=== PATIENT | female | born 1980 | race Caucasian/White ===

== ENCOUNTER 2019-01-14 23:00 | Inpatient (IN) | payer MEDICAID, OTHER, SELFPAY ==
[2019-01-15] MEDS ORDERED: Ondansetron PF 4 MG/2 ML Vial IVP PRN (16:57)
[2019-01-15] MEDS ORDERED: Promethazine HCl 25 MG/ML VIAL IM PRN (16:57)
[2019-01-15] MEDS ORDERED: Acetaminophen 500 MG TAB PO PRN (16:57)
[2019-01-15] MEDS ORDERED: Docusate 100 MG CAP PO PRN (16:57)
[2019-01-15 16:59] VITALS: BP 119/65; TEMP 98.2; BMI 25.7
[2019-01-15 17:34] LABS: Hemoglobin 11.7 g/dL (12.0-16.0); Mean Corpuscular HGB CONC 33.6 g/dL (32.0-36.0); Mean Corpuscular Hemoglobin 27.5 pg (27.0-31.0); Mean Corpuscular Volume 81.6 fL (78.0-98.0); Mean Platelet Volume 8.1 fL (7.4-10.4); Platelet Count 232 thou/uL (130-400); Red Blood Cell (RBC) Count 4.26 mill/uL (4.20-5.40); White Blood Cell (WBC) Count 8.3 thou/uL (4.8-10.8)
[2019-01-15 18:12] LABS: HBSAg Index 0.25 S/CO (0-0.99); Hep B Surf Ag Non-Reactive S/CO (NonReactive); Syphilis Antibody Nonreactive (Nonreactive); Syphilis Antibody Index 0.03 S/CO (<1.00 Non-Reactive)
[2019-01-15] MEDS ORDERED: Lactated Ringer's 1,000 ML IV SCH (18:15)
--- NOTE | 2019-01-15 18:16 | PDOC.LDHP ---
Labor and Delivery H&P Chief complaint: scheduled induction HPI: 38 yo @39 0/7 weeks presenting for elective induction. Feeling occasional ctx. Denies any LOF, VB. (+)FM. Denies any QUINTEROS, visual changes. Current gestational age (weeks): 39 Due date: 01/22/19 Dating criteria: second trimester ultrasound (16.3 week USG) Grav: 4 Para: 3 OB History Details: TSVD x 3 Current complications: other (AMA) Abnormal US findings: No Past Medical History: Denies DM, HTN, asthma, cardiac, lung or kidney disease Current medications: pre-toya vitamins Previous surgical history: none Allergies/Adverse Reactions: Allergies Allergy/AdvReac Type Severity Reaction Status Date / Time No Known Allergies Allergy Unverified 01/13/14 15:42 Social history: none - Physical Exam Vital signs reviewed and normal: yes General: NAD Heart: RRR Lungs: CTAB Abdomen: gravid Extremeties: no edema FHT: category 1 [place] contractions every: rare - Vaginal Exam cm dilated: 1 Effacement: 50% Station: -3 - OB Labs Blood type: A RH: positive Antibody Screen: negative HIV: negative RPR: negative HEPSAg: negative 1 hour GCT: negative GBS: negative Urine drug screen: not done Rubella: immune Additional Labs: [id number] -negative msAFP- negative for OSB - Assessment L&D Assessment: elective induction at term - Plan Plan: admit to L&D -: Unable to palpate presenting part on SVE. Leopolds not c/w vertex presentation. USG brought to room to confirm presentation and fetus found to be in transverse lie back up. Normal appearing amount of amniotic fluid. Findings discussed with educational sign language interpreter from [employer]. Discussed options for care including external cephalic version, or expectant management. Risks for external version discussed including placental abruption and distress necessitating emergent . Risks of including bleeding, infection, injury to adjacent organs. Patient wishes to proceed with expectant management. Patient rescheduled for possible induction versus on January 19.
== END 2019-01-15 19:04 | disposition home health service (06) | DRG 998 ==
LOC: L&D 01-15 15:36
PROVIDERS: ADMIT Family Medicine; ATTEND Family Medicine
DX: O09.523 Supervision of elderly multigravida, third trimester (principal); Z3A.39 39 weeks gestation of pregnancy
CPT/HCPCS: 36415; 76815; 85027; 86780; 86850; 86900; 86901; 87340

== ENCOUNTER 2019-01-17 00:20 | Inpatient (IN) | payer OTHER, SELFPAY ==
[2019-01-17] MEDS: Lactated Ringer's 1,000 ML IV SCH ×2 (00:50→01:19)
[2019-01-17] MEDS ORDERED: Fentanyl 4 mcg/Bup 0.1% Cadd 100 ML ONE (00:57)
--- NOTE | 2019-01-17 01:01 | PDOC.FPRHP ---
- History of Present Illness Chief Complaint: Contractions - Allergies/Adverse Reactions Allergies Allergy/AdvReac Type Severity Reaction Status Date / Time No Known Allergies Allergy Unverified 01/13/14 15:42 - Home Medications Medication Instructions Recorded Confirmed Type Vit,Calc76/Iron/Folic 1 tablet PO DAILY 01/13/14 01/15/19 History [Prenatabs Rx Tablet] - History PMHx: PSHx: FHx: Social: - Vital signs BP: [] HR: [] RR: [] Tmax: [] Pox: []% on [] Wt: [] FMR H&P: Upper Level - Plan Date/Time: 01/17/19 0100 I, [], have evaluated this patient and agree with findings/plan as outlined by commander internal affairs resident. Pertinent changes/additions are listed here.
[2019-01-17 01:03] LABS: Hemoglobin 12.3 g/dL (12.0-16.0); Mean Corpuscular HGB CONC 33.1 g/dL (32.0-36.0); Mean Corpuscular Hemoglobin 27.1 pg (27.0-31.0); Mean Corpuscular Volume 81.9 fL (78.0-98.0); Mean Platelet Volume 8.3 fL (7.4-10.4); Platelet Count 236 thou/uL (130-400); Red Blood Cell (RBC) Count 4.52 mill/uL (4.20-5.40); White Blood Cell (WBC) Count 10.1 thou/uL (4.8-10.8)
--- NOTE | 2019-01-17 01:12 | PDOC.FPROB ---
FMR OB H&P: HPI - History of Present Illness Chief Complaint: Contractions History of Present Illness: This is is a 38 yo at 39.2 wks by 16.3 wk US who presents to L&D for contractions. She reports the contractions started at 2100 hrs this evening and are ~5 minutes apart and strong. She reports FM and denies LOF, vaginal bleeding , headache, chest pain, SOB, or changes in vision. Pt has had 3 previous vaginal deliveries. FMR OB H&P: Current - Care : 4 Para: 3003 Gestational age: 39.2 Due date: 01/22/19 Dating Criteria: 16.3 wk US Course/Complications: AMA - OB Labs Blood type: A RH: negative HIV: negative RPR: negative HepBsAg: negative Rubella: immune Gonorrhea: negative Chlamydia: negative 1 hour gtt: 135 GBS: negative H&H: 12. 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 QUALITY CLOTH TESTER History: None - Surgical History Sx History: None - Social History Social History: None - Family History Family History: noncontributory FMR OB H&P: Medications - Current Home Medications: Medication Instructions Recorded Confirmed Type Vit,Calc76/Iron/Folic 1 tablet PO DAILY 01/13/14 01/17/19 History [Prenatabs Rx Tablet] Docusate Calcium [Surfak] 240 mg PO BID #30 cap 01/18/19 Rx Ferrous Sulfate 325 mg PO DAILY #30 tablet 01/18/19 Rx Ibuprofen [Motrin] 800 mg PO Q8HR #30 tab 01/18/19 Rx Allergies/Adverse Reactions: Allergies Allergy/AdvReac Type Severity Reaction Status Date / Time No Known Allergies Allergy Verified 01/17/19 01:24 FMR OB H&P: ROS - Review of Systems General: denies: fever/chills, weight/appetite/sleep changes, night sweats Eyes: denies: eye pain, vision changes ENT: denies: nasal congestion, rhinorrhea Cardiovascular: denies: chest pain, palpitation Respiratory: denies: cough, congestion, shortness of breath Gastrointestinal: denies: nausea, vomiting Genitourinary (Female): reports: contractions, vaginal pressure. denies: vaginal discharge, vaginal pain, vaginal bleeding Musculoskeletal: denies: pain, stiffness Neurologic: denies: numbness, syncope, seizures Integumentary: denies: itching, lesions Psychological: denies: depression, anxiety FMR OB H&P: Vital Signs - Heart Tones Baseline: 125 Variability: moderate Acceleration: present Deceleration: absent Category: category 1 FMR OB H&P: Physical Exam - Physical Exam General: NAD, awake, alert and oriented HEENT: normocephalic and atraumatic, MMM, oropharynx clear Neck: FROM, trachea midline, no JVD Chest: non-tender to palpation Heart: RRR, normal S1/S2, no murmurs/rubs/gallops, pulses present General: CTAB, no respiratory distress, no wheezing Abdomen: soft, gravid, bowel sound present Musculoskeletal: FROM in all four extremities Neurological: cranial nerves II through XII intact Skin: capillary refill <2 seconds Lymphatic: no unusual bruising or bleeding Psychiatric: intact recent and remote memory - Pelvic Exam SVE: +1 FMR OB H&P: Results - Labs Lab results: Laboratory Results - last 24 hr 01/17/19 00:55 WBC 10.1 RBC 4.52 Hgb 12.3 Hct 37.0 MCV 81.9 MCH 27.1 MCHC 33.1 RDW 14.0 Plt Count 236 MPV 8.3 - Imaging Imaging: Bedside ultrasound shows vertex position FMR OB H&P: A/P - Problem List (1) Term Status: Acute Code(s): Z34.90 - ENCNTR FOR SUPRVSN OF NORMAL , UNSP, UNSP TRIMESTER (2) Advanced maternal age (AMA) in Status: Acute Code(s): DCE2138 - Disposition: This is is a 38 yo at 39.2 wks by 16.3 wk US who presents to L&D for contractions Term IUP in active labor -Admit to L&D -Start on LR at 125ml/hr -Initial check is /+1 -FHTs baseline 125, cat 1 strip -Consistent contraction pattern -Bedside US reveals vertex position -Expectant management AMA -Previous with no complications. M reports that pt is low risk for significant negative outcomes based on AMA alone Discussion: Date/Time: 01/17/19 0110 This H&P was discussed with Dr. Villalpando and Dr. Negron who agree with the above documentation and plan. Addendum - Attending - Attending Attestation Date/Time: 01/19/19 3079 I personally evaluated the patient and discussed the management with Dr. Florian I agree with the History, Examination, Assessment and Plan documented above with any addition or exceptions noted below.
[2019-01-17] MEDS ORDERED: Fentanyl 100 MCG/2 ML VIAL ONE (01:13)
[2019-01-17] MEDS ORDERED: NS / Oxytocin 40 units/1000ml 1,000 ML IV PRN (01:20)
[2019-01-17] MEDS ORDERED: Lidocaine 1% (PF) 30 ML VIAL SC PRN (01:20)
[2019-01-17] MEDS ORDERED: Promethazine HCl 25 MG/ML VIAL IM PRN ×2 (01:21→02:15)
[2019-01-17] MEDS ORDERED: Ondansetron PF 4 MG/2 ML Vial IVP PRN ×3 (01:21→05:54)
[2019-01-17 01:43] LABS: HBSAg Index 0.23 S/CO (0-0.99); Hep B Surf Ag Non-Reactive S/CO (NonReactive)
[2019-01-17] MEDS ORDERED: diphenhydrAMINE 50 MG/ML VIAL IVP PRN (02:15)
[2019-01-17] MEDS ORDERED: Lactated Ringer's 500 ML IV PRN (02:15)
[2019-01-17] MEDS ORDERED: Naloxone HCl 0.4 mg/ml Vial IVP PRN ×2 (02:15)
[2019-01-17] MEDS ORDERED: ePHEDrine/0.9% NaCl/PF SYRINGE 50 mg/10 ml SLOW IVP PRN (02:15)
[2019-01-17] MEDS ORDERED: Fentanyl 4 mcg/Bupivacaine 0.1% Cassette 100 ML EPIDURAL SCH (02:15)
[2019-01-17] MEDS ORDERED: Communication Order-Pharmacy FS SCH (02:15)
[2019-01-17] MEDS ORDERED: Acetaminophen 325 MG TAB PO PRN (02:15)
[2019-01-17] MEDS: Ibuprofen 800 MG TAB PO SCH ×3 (02:27→21:31)
[2019-01-17 03:53] VITALS: BMI 26.5
[2019-01-17 05:32] LABS: Syphilis Antibody Nonreactive (Nonreactive); Syphilis Antibody Index 0.04 S/CO (<1.00 Non-Reactive)
[2019-01-17] MEDS ORDERED: Adacel (T-DAP) 0.5 ML SYRINGE IM ONE (05:54)
[2019-01-17] MEDS ORDERED: diphenhydrAMINE 25 MG CAP PO PRN (05:54)
[2019-01-17] MEDS ORDERED: Preparation H Ointment 28 GM TUBE PR PRN (05:54)
[2019-01-17] MEDS ORDERED: NS / Oxytocin 40 units/1000ml 1,000 ML IV SCH (05:54)
[2019-01-17] MEDS ORDERED: Milk Of Magnesia 30 ML UDCUP PO PRN (05:54)
[2019-01-17] MEDS ORDERED: Lanolin Ointment 7 GM TUBE TOP PRN (05:54)
[2019-01-17] MEDS ORDERED: Benzocaine-Menthol 82.5 ML CAN TOP PRN (05:54)
[2019-01-17] MEDS ORDERED: Bisacodyl 10 MG SUPP PR PRN (05:54)
--- NOTE | 2019-01-17 06:25 | DN ---
DATE OF PROCEDURE: 01/17/2019 DELIVERING PHYSICIAN: Maninder Florian DO BUFFING WHEEL OPERATOR PHYSICIAN: Katie Huitron DO PREOPERATIVE DIAGNOSES: 1. Term intrauterine in active labor. 2. Advanced maternal age. POSTOPERATIVE DIAGNOSES: 1. Term intrauterine , delivered. 2. Advanced maternal age. PROCEDURE PERFORMED: Spontaneous vaginal delivery. ANESTHESIA: Epidural, local for repair. QBL: 78 mL of blood. INDICATION FOR PROCEDURE: This is a 38-year-old female, G4, P3-0-0-3, presents in active labor. DESCRIPTION OF PROCEDURE: This is a 38-year-old female, G4, P3-0-0-3, at 39 and 2 weeks, who delivered a viable male infant at 0157 hours on 01/17/2019. Following uneventful antepartum course, a vigorous male was delivered over an intact perineum in the occipitoanterior position. Anterior shoulder and then remainder of the body was delivered. No nuchal cord. The head was held down. Mouth and nares were bulb suctioned. Cord was clamped after delayed cord clamping for 1 minute and cut and cord blood was collected. Placenta was delivered in the [place] presentation with a three-vessel cord noted. Fundal massage was performed and the fundus was found to be firm. Cervix and vagina were inspected and found to have one first-degree laceration with venous bleeding. Hemostasis was obtained via 3-0 Vicryl with a figure- eight stitch. Good approximation of the edges. 1% lidocaine was used for local anesthetic. The infant went to nursery in good condition for routine care. Apgars were 9 and 9 at one and five minutes respectively. The patient tolerated the delivery well and went to after routine recovery/care. Job ID: [id number]
[2019-01-17] MEDS: Prenatal Vitamin 1 TAB PO SCH (09:05)
[2019-01-17] MEDS: Docusate Calcium (SURFAK) 240 MG CAP PO SCH ×2 (09:06→21:31)
[2019-01-17] MEDS ORDERED: Bupivacaine/Epinephrine 0.25% 30 ML VIAL ONE (11:11)
[2019-01-17] MEDS ORDERED: Sodium Chloride 0.9% 10 ML ONE (12:10)
[2019-01-17] MEDS: Ferrous Sulfate 325 MG TAB PO SCH ×2 (13:46→18:03)
[2019-01-18] MEDS: Ibuprofen 800 MG TAB PO SCH (05:56)
--- NOTE | 2019-01-18 08:14 | PDOC.PP ---
Post Progress Note Post Day #: 1 Subjective: Patient doing well. No significant overnight events. Patient tolerating PO. Lochia minimal. Ambulating. PO intake tolerated: yes Flatus: yes Ambulation: yes Vital Signs (12 hours) Temp Pulse Resp BP Pulse Ox 01/18/19 03:41 98.0 F 60 16 106/59 L 97 01/18/19 00:15 98.2 F 69 18 110/61 96 01/17/19 20:30 98.2 F 67 18 106/55 L 95 Weight Weight 61.689 kg - Physical Examination General: NAD Cardiovascular: no m/r/g, RRR Respiratory: clear to auscultation bilaterally Abdominal: + bowel sounds, lochia (minimal), no distention, appropriately TTP Fundus firm & at: Below umbilicus Neurological: no gross focal deficits Psychiatric: A&Ox3, normal affect Result Diagrams: 01/18/19 07:04 Additional Labs: Post Labs Blood Type A POSITIVE 01/17/19 00:55 Hep Bs Antigen Non-Reactive S/CO (NonReactive) 01/17/19 00:55 (1) Term delivered Code(s): O80 - ENCOUNTER FOR FULL-TERM UNCOMPLICATED DELIVERY Status: Acute (2) (spontaneous vaginal delivery) Code(s): O80 - ENCOUNTER FOR FULL-TERM UNCOMPLICATED DELIVERY Status: Acute (3) First degree laceration of perineum during delivery, Code(s): O70.0 - FIRST DEGREE PERINEAL LACERATION DURING DELIVERY Status: Acute (4) Advanced maternal age (AMA) in Code(s): [id number] - Status: Acute - Assessment/Plan 38 year old at 39.2 weeks delivered TAGA M via on 01/17/2019. 1. TIUP, delivered - Routine PP care - No complications - Lochia minimal - Ambulating without difficulty and tolerating PO 2. - Uncomplicated 3. AMA - No risk of congenital abnormalities based on quad screen 4. 1st degree perineal laceration s/p repair - No complications - 1 figure of 8 stitch, hemostatic Dispo: Plan for d/c home today pending 's bilirubin level. Follow up in 2 weeks at [facility]. Addendum - Attending - Attending Attestation Date/Time: 01/18/19 [id number] I personally evaluated the patient and discussed the management with Dr. Huitron I agree with the History, Examination, Assessment and Plan documented above with any addition or exceptions noted below - Patient without complaints. Afebrile VSS. A/P: 1) PPD#1 s/p - Doing well. Plan to d.c home later today.
[2019-01-18 08:15] VITALS: BP 105/59; TEMP 98.2
[2019-01-18] MEDS: Prenatal Vitamin 1 TAB PO SCH (10:29)
[2019-01-18] MEDS: Docusate Calcium (SURFAK) 240 MG CAP PO SCH (10:29)
== END 2019-01-18 12:55 | disposition home or self-care (01) | DRG 807 ==
LOC: L&D/OP 00:20 → L&D 02:40 → 3SE 05:46
PROVIDERS: ADMIT Family Medicine; ATTEND Family Medicine
PROC: 10E0XZZ Delivery of Products of Conception, External Approach (ICD-10-PCS; principal; 2019-01-17)
PROC: 0HQ9XZZ Repair Perineum Skin, External Approach (ICD-10-PCS; 2019-01-17)
DX: O70.0 First degree perineal laceration during delivery (principal); Z37.0 Single live birth; Z3A.39 39 weeks gestation of pregnancy; Z88.8 Allergy status to other drugs, medicaments and biological substances
CPT/HCPCS: 36415; 85014; 85018; 85027; 86780; 86850; 86900; 86901; 87340; 99285; J2001; J3010

== ENCOUNTER 2021-07-08 08:06 | Outpatient (CLI) | payer BC | END 2021-07-08 08:07 | disposition home or self-care (01) | LOC: BICMAMMO 08:06 | PROVIDERS: ATTEND Nurse Practitioner Women's Health | DX: Z12.31 Encounter for screening mammogram for malignant neoplasm of breast (principal) | CPT/HCPCS: 77063; 77067 ==